=== PATIENT | male | born 1965 | race African-American/Black ===

== ENCOUNTER 2017-01-07 16:55 | Emergency (ER) | payer SELFPAY ==
[2017-01-07] MEDS ORDERED: Magnesium Sulfate 2 GM/100 ML BAG ONE (17:09)
[2017-01-07] MEDS ORDERED: Ketorolac Tromethamine 30 MG/ML VIAL ONE (17:33)
[2017-01-07] MEDS ORDERED: diphenhydrAMINE HCl 50 MG/ML 1 ML VIAL ONE (17:33)
[2017-01-07] MEDS ORDERED: Metoclopramide HCl 10 MG/2 ML VIAL ONE (17:33)
[2017-01-07] MEDS ORDERED: Sodium Chloride 0.9% 100 ML ONE (17:33)
== END 2017-01-07 18:36 | disposition home or self-care (01) ==
LOC: BURERS 16:55
DX: G43.009 Migraine without aura, not intractable, without status migrainosus (principal); I10 Essential (primary) hypertension; F17.210 Nicotine dependence, cigarettes, uncomplicated
CPT/HCPCS: 96365; 96375; J1200; J1885; J2765; J3475; J7050